=== PATIENT | female | born 1980 | race Caucasian/White ===

== ENCOUNTER 2017-01-12 07:40 | Emergency (ER) | payer BC ==
[~2017-01-12] VITALS: Wt 68.2 kg
[2017-01-12] MEDS ORDERED: morphine 4 MG/ML VIAL IV STA (08:35)
[2017-01-12] MEDS ORDERED: SOD CHLORIDE 0.9% 1,000 ML IV STA (08:35)
[2017-01-12] MEDS ORDERED: ONDANSETRON 4 MG INJ IV STA (08:35)
[2017-01-12] MEDS ORDERED: ACETAMINOPHEN 325 MG TAB PO ONE (09:00)
[2017-01-12 09:14] LABS: BASOPHILS % 0.2 % (0.0-2.0); HEMATOCRIT 31.9 % (37.0-47.0); HEMOGLOBIN 11.7 g/dl (12.0-16.0); LYMPHOCYTES # 0.8 10^3/ul (0.8-2.9); LYMPHOCYTES % 6.9 % (15.0-51.0); MEAN CORPUSCULAR HEMOGLOBIN 32.9 pg (29.0-33.0); MEAN CORPUSCULAR HGB CONC 36.7 g/dl (32.0-37.0); MEAN CORPUSCULAR VOLUME 89.6 fl (82.0-101.0); MEAN PLATELET VOLUME 9.4 fl (7.4-10.4); MONOCYTE # 1.2 10^3/ul (0.3-0.9); MONOCYTES % 9.8 % (0.0-11.0); NEUTROPHIL # 9.7 10^3/ul (1.6-7.5); NEUTROPHILS % 82.5 % (39.0-77.0); PLATELET COUNT 303 10^3/UL (140-415); RED BLOOD COUNT 3.56 10^6/ul (4.20-5.40); RED CELL DISTRIBUTION WIDTH 11.4 % (11.5-14.5); WHITE BLOOD COUNT 11.7 10^3/ul (4.8-10.8)
--- NOTE | 2017-01-12 09:24 | ERD ---
ER Documentation Chief Complaint Chief Complaint cough, brush, bodyaches, fever, chills, l. sided abd pain, n/v HPI This is a 36-year-old female presents to the ER with left-sided abdominal pain that is crampy and sore in nature that started 4 days ago. Patient has had fevers and chills. She also has nonbilious nonbloody vomiting with nausea. She denies any diarrhea. She states she has been constipated and her last normal bowel movement was on Tuesday. Patient is not typically constipated. Patient denies any cough or cold symptoms. She denies any sore throat or ear pain. Patient denies any pelvic pain. She did go to the urgent care yesterday and was given a shot of antibiotics and some medication for a diagnosed urinary tract infection while in the urgent care. Denies any chest pain or shortness of breath. Denies any IV drug use. ROS 12 point review of systems was done, all negative except per HPI. Medications Home Meds Active Scripts Ciprofloxacin Hcl* (Ciprofloxacin Hcl*) 500 Mg Tablet, 500 MG PO BID for 10 Days , TAB Prov:SHIRA TIRADO 01/12/17 Docusate Sodium* (Colace*) 100 Mg Capsule, 100 MG PO TID, #30 CAP Prov:SHIRA TIRADO 01/12/17 Ondansetron Hcl* (Zofran*) 4 Mg Tab, 4 MG PO Q4H Y for NAUSEA AND OR VOMITING for 3 Days, TAB Prov:SHIRA TIRADO 01/12/17 Allergies Allergies: Coded Allergies: No Known Allergy (Unverified , 01/12/17) PMhx/Soc Medical and Surgical Hx: pt denies Medical Hx, pt denies Surgical Hx Hx Alcohol Use: No Hx Substance Use: No Hx Tobacco Use: No Smoking Status: Never smoker Physical Exam Vitals Vital Signs Date Time Temp Pulse Resp B/P Pulse Ox O2 Delivery O2 Flow Rate FiO2 01/12/17 07:45 102.1 120 20 104/65 97 Physical Exam GENERAL: The patient is well developed and appropriate for usual state of health , in no apparent distress. HEENT: Atraumatic. Conjunctivae are pink. Pupils equal, round, and reactive to light. Extraocular muscles are grossly intact. Bilateral tympanic membranes are clear with no evidence of erythema, effusion or dulling of the light reflex. The oropharynx is clear with no erythema or exudates. NECK: C-spine is soft and supple. There is no cervical lymphadenopathy. CHEST: Clear to auscultation bilaterally. There are no rales, wheezes or rhonchi. HEART: Regular rate and rhythm. No murmurs, clicks, rubs or gallops. ABDOMEN: Soft, nondistended, tender to palpation in the left lower quadrant. Good bowel sounds. No rebound or guarding. No gross peritonitis. No gross organomegaly or masses. No Fitch sign or McBurney point tenderness. BACK: No midline or flank tenderness. EXTREMITIES: Equal pulses bilaterally. There is no peripheral clubbing, cyanosis or edema. No focal swelling or erythema. Full range of motion. Grossly neurovascularly intact. NEURO: Alert and oriented. Cranial nerves II through XII are intact. Motor strength in all 4 extremities with 5/5 strength. Sensation grossly intact. Normal speech and gait. SKIN: There is no apparent rash or petechia. The skin is warm and dry. Result Diagram: 01/12/17 0856 01/12/17 0856 Results 24 hrs Laboratory Tests Test 01/12/17 08:56 White Blood Count 11.710^3/ul Red Blood Count 3.5610^6/ul Hemoglobin 11.7g/dl Hematocrit 31.9% Mean Corpuscular Volume 89.6fl Mean Corpuscular Hemoglobin 32.9pg Mean Corpuscular Hemoglobin Concent 36.7g/dl Red Cell Distribution Width 11.4% Platelet Count 46517^3/UL Mean Platelet Volume 9.4fl Neutrophils % 82.5% Lymphocytes % 6.9% Monocytes % 9.8% Eosinophils % 0.0% Basophils % 0.2% Nucleated Red Blood Cells % 0.0/100WBC Neutrophils # 9.710^3/ul Lymphocytes # 0.810^3/ul Monocytes # 1.210^3/ul Eosinophils # 0.010^3/ul Basophils # 0.010^3/ul Nucleated Red Blood Cells # 0.010^3/ul Urine Color CARMEN Urine Clarity SLIGHTLY CLOUDY Urine pH 5.0 Urine Specific [place] 1.021 Urine Ketones 2+mg/dL Urine Nitrite NEGATIVEmg/dL Urine Bilirubin NEGATIVEmg/dL Urine Urobilinogen 2+mg/dL Urine Leukocyte Esterase 1+Estrella/ul Urine Microscopic RBC 13/HPF Urine Microscopic WBC 39/HPF Urine Squamous Epithelial Cells FEW/HPF Urine Bacteria FEW/HPF Urine Mucus MANY/HPF Urine Hemoglobin 2+mg/dL Urine Glucose NEGATIVEmg/dL Urine Total Protein 2+mg/dl Sodium Level 139mmol/L Potassium Level 3.5mmol/L Chloride Level 101mmol/L Carbon Dioxide Level 25mmol/L Anion Gap 17 Blood Urea Nitrogen 13mg/dl Creatinine 0.84mg/dl Glucose Level 125mg/dl Calcium Level 9.0mg/dl Total Bilirubin 0.7mg/dl Direct Bilirubin 0.00mg/dl Indirect Bilirubin 0.7mg/dl Aspartate Amino Transf (AST/SGOT) 26IU/L Alanine Aminotransferase (ALT/SGPT) 61IU/L Alkaline Phosphatase 99IU/L Total Protein 7.1g/dl Albumin 3.9g/dl Globulin 3.20g/dl Albumin/Globulin Ratio 1.21 Lipase 51U/L Current Medications Medications (Trade) Dose Ordered Sig/Jun Route PRN Reason Start Time Stop Time Status Last Admin Dose Admin Sodium Chloride (NS) 1,000 ml @ 1,000 mls/hr Q1H STAT IV 01/12/17 08:35 01/12/17 09:34 DC 01/12/17 08:56 Morphine Sulfate (morphine) 4 mg ONCE STAT IV 01/12/17 08:35 01/12/17 08:37 DC 01/12/17 08:59 Ondansetron HCl (Zofran Inj) 4 mg ONCE STAT IV 01/12/17 08:35 01/12/17 08:37 DC 01/12/17 08:59 Acetaminophen 650 mg 650 mg ONCE ONCE PO 01/12/17 09:00 01/12/17 09:01 DC 01/12/17 08:59 Ceftriaxone Sodium (Rocephin) 50 ml @ 100 mls/hr ONCE ONCE IVPB 01/12/17 10:00 01/12/17 10:29 DC 01/12/17 10:12 [place] [id number] Radiology Main Line: [phone] DIAGNOSTIC IMAGING REPORT Patient: OLEKSANDR HAMMER : 1980 Age: 36 Sex: F MR #: [id number] DOS: 01/12/17 0835 Ordering MD: SHIRA TIRADO PA-C Location: [facility] [place] Room/Bed: PROCEDURE: CT abdomen and pelvis without contrast. CLINICAL INDICATION: Abdominal pain in the left lower quadrant and fever TECHNIQUE: CT scan of the abdomen and pelvis without contrast was performed on a [employer] CT scanner utilizing axial imaging from the lung bases through the pubis symphysis. The patient was scanned without intravenous contrast. Sagittal and coronal reformatted images were made. The CTDIvol is 8.36 mGy and the DLP is 467.15 mGycm. DICOM images are available. One of the following 3 dose reduction techniques were used during this CT examination: 1) Automated exposure control 2) Adjustment of the mA +/- kV according to patient size or 3) Use of iterative reconstruction technique COMPARISON: None. FINDINGS: The lung bases are clear. No focal infiltrates, masses or effusions are present. Mild cardiomegaly is present. Mild hepatic megaly is present with mild fatty infiltration. A focus of hypoattenuation is noted measuring 1.6 cm AP by 2.3 cm transverse in the posterior segment of the right lobe of the liver. Recommend additional imaging with contrast CT or MRI. The visualized spleen, pancreas, gallbladder are normal. No evidence for intrahepatic and extrahepatic biliary ductal dilatation is present. The visualized stomach is normal with air fluid gastric contents noted. The bilateral adrenal glands are normal. The bilateral kidneys demonstrate nephroureterolithiasis with a 3 mm calculus in the left inferior pole and 3 mm calculus in the right upper pole which are nonobstructive. No evidence for hydroureteronephrosis is present. Mild left perinephric inflammation and pararenal stranding is noted. Recommend correlation with a left pyelonephritis. Mild thickening of the lateral conal fascia is present on the left. No evidence for ascites or pneumoperitoneum is present. The visualized aorta is normal without evidence for aneurysmal dilatation. The visualized pelvis demonstrates a well distended urinary bladder. The uterus and bilateral adnexa are normal. No evidence for pathologic lymphadenopathy or masses are present. The imaged osseous structures are normal. IMPRESSION: 1. Bilateral nonobstructive nephrolithiasis with left perinephric inflammation and correlate with left pyelonephritis. 2. Mild diverticulosis without definite evidence for acute diverticulitis or appendicitis. 3. Abundance of stool and correlate with constipation. 4. No evidence for ascites, pneumoperitoneum or pathologic lymphadenopathy. 5. Nonspecific hypoattenuating right hepatic lobe lesion measuring 1.6 cm AP by 2.3 cm in transverse dimensions. Recommend additional hepatic imaging with contrast CT or MR. A call report was made to Shira Tirado at 01/12/2017 9:49:06 AM following the completion of the examination by the undersigned. RPTAT: HDC .Valencia Ross MD, MD Date Time Electronically viewed and signed by .Valencia Ross MD, MD on 01/12/2017 09: 53 .C/ CC: SHIRA TIRADO Procedures/MDM EKG was done 97bpm no ST elevation or t wave inversion. This Is a 36-year-old female that presents to the ER with left lower quadrant abdominal pain patient is currently being treated for urinary tract infection which was found at an urgent care, full workup was done including CT scan patient was found to have nephrolithiasis which is nonobstructive and left- sided pyelonephritis which is likely the cause of her pain. Patient's fever was controlled in the ER and her tachycardia improved after hydration and pain control. Not have any episodes of nausea or vomiting in the ER. Patient was given a gram of Rocephin without any complications. She will be sent home with a 10 day course of Cipro, Zofran and docusate for her constipation. Patient needs to follow-up with her primary care doctor within 1-2 days return to ER sooner if symptoms worsen. My medical decision making shared with the patient she understands and agrees with plan. Departure Diagnosis: Primary Impression: Pyelonephritis Condition: Stable SHIRA TIRADO Jan 12, 2017 09:24
[2017-01-12 09:32] LABS: ALBUMIN 3.9 g/dl (3.3-4.9); ALBUMIN/GLOBULIN RATIO 1.21; BILIRUBIN,INDIRECT 0.7 mg/dl (0-1.1); BILIRUBIN,TOTAL 0.7 mg/dl (0.2-1.3); CREATININE 0.84 mg/dl (0.44-1.00); POTASSIUM 3.5 mmol/L (3.5-5.1); TOTAL PROTEIN 7.1 g/dl (6.1-8.1)
[2017-01-12 09:39] LABS: ADD UMIC YES; UR ASCORBIC ACID 40 mg/dL (NEGATIVE); UR BACTERIA FEW /HPF (NONE SEEN); UR BILIRUBIN (Dip) NEGATIVE (NEGATIVE); UR BLOOD (Dip) 2+ mg/dL (NEGATIVE); UR CLARITY SLIGHTLY CLOUDY (CLEAR); UR COLOR AMBER (YELLOW); UR GLUCOSE (Dip) NEGATIVE (NEGATIVE); UR KETONES (Dip) 2+ mg/dL (NEGATIVE); UR LEUKOCYTE ESTERASE (Dip) 1+ Leu/ul (NEGATIVE); UR MUCUS MANY /HPF (NONE SEEN); UR NITRITE (Dip) NEGATIVE (NEGATIVE); UR RBC 13 /HPF (0-5); UR SPECIFIC GRAVITY (Dip) 1.021 (1.003-1.030); UR SQUAMOUS EPITHELIAL CELL FEW /HPF (FEW); UR TOTAL PROTEIN (Dip) 2+ mg/dl (NEGATIVE); UR UROBILINOGEN (Dip) 2+ mg/dL (NEGATIVE)
--- NOTE | 2017-01-12 09:54 | RADRPT ---
PROCEDURE: CT abdomen and pelvis without contrast. CLINICAL INDICATION: Abdominal pain in the left lower quadrant and fever TECHNIQUE: CT scan of the abdomen and pelvis without contrast was performed on a [employer] CT scanner utilizing axial imaging from the lung bases through the pubis symphysis. The patient was sc anned without intravenous contrast. Sagittal and coronal reformatted images were made. The CTDIvol is 8.36 mGy and the DLP is 467.15 mGycm. DICOM images are available. One of the following 3 dose reduction techniques were used during this CT examination: 1) Automated exposure control 2) Adjustment of the mA +/- kV according to patient size or 3) Use of iterative reconstruction technique COMPARISON: None. FINDINGS: The lung bases are clear. No focal infiltrates, masses or effusions are present. Mild cardiomegaly i s present. Mild hepatic megaly is present with mild fatty infiltration. A focus of hypoattenuation is noted yong suring 1.6 cm AP by 2.3 cm transverse in the posterior segment of the right lobe of the liver. Recom mend additional imaging with contrast CT or MRI. The visualized spleen, pancreas, gallbladder are no rmal. No evidence for intrahepatic and extrahepatic biliary ductal dilatation is present. The visual ized stomach is normal with air fluid gastric contents noted. The bilateral adrenal glands are normal. The bilateral kidneys demonstrate nephroureterolithiasis with a 3 mm calculus in the left inferior p ole and 3 mm calculus in the right upper pole which are nonobstructive. No evidence for hydrouretero nephrosis is present. Mild left perinephric inflammation and pararenal stranding is noted. Recommend correlation with a left pyelonephritis. Mild thickening of the lateral conal fascia is present on t he left. No evidence for ascites or pneumoperitoneum is present. The visualized aorta is normal without evidence for aneurysmal dilatation. The visualized pelvis demonstrates a well distended urinary bladder. The uterus and bilateral adnexa are normal. No evidence for pathologic lymphadenopathy or masses are present. The imaged osseous structures are normal. IMPRESSION: 1. Bilateral nonobstructive nephrolithiasis with left perinephric inflammation and correlate with l eft pyelonephritis. 2. Mild diverticulosis without definite evidence for acute diverticulitis or appendicitis. 3. Abundance of stool and correlate with constipation. 4. No evidence for ascites, pneumoperitoneum or pathologic lymphadenopathy. 5. Nonspecific hypoattenuating right hepatic lobe lesion measuring 1.6 cm AP by 2.3 cm in transvers e dimensions. Recommend additional hepatic imaging with contrast CT or MR. A call report was made to Shira Puckett at 01/12/2017 9:49:06 AM following the completion of the e xamination by the undersigned. RPTAT: HDC .Valencia Ross MD, MD Date Time Electronically viewed and signed by .Valencia Ross MD, on 01/12/2017 09:53 .C/
[2017-01-12] MEDS ORDERED: CEFTRIAXONE 1 GM/50 ML (PMX) 50 ML IVPB ONE (10:00)
[2017-01-12] MEDS ORDERED: ONDA-43 PO (11:31)
[2017-01-12] MEDS ORDERED: DOCU-144 PO (11:31)
[2017-01-12] MEDS ORDERED: CIPR500T4 PO (11:32)
[2017-01-12] MEDS ORDERED: SOD CHLORIDE 0.9% 1,000 ML IV ONE (12:00)
[2017-01-12 12:56] VITALS: BP 98/56; PULSE 80; RESP 20; TEMP 98.9
== END 2017-01-12 13:00 | disposition home or self-care (01) ==
LOC: FTE 07:40
DX: N12 Tubulo-interstitial nephritis, not specified as acute or chronic (principal); R07.9 Chest pain, unspecified
CPT/HCPCS: 36415; 74176; 80053; 81001; 83690; 85025; 87400; 93005; 96374; 96375; 99285; J0696; J2270; J2405; J7030